=== PATIENT | male | born 1950 | race Caucasian/White ===

== ENCOUNTER 2023-02-05 10:20 | Emergency (ER) | payer MEDICARE, SELFPAY ==
[2023-02-05 10:31] VITALS: BP 143/71; PULSE 73; RESP 17; TEMP 36.9; O2SAT 94; BMI 33.0
--- NOTE | 2023-02-05 10:49 | ED_ITS ---
HPI - URI/Sore Throat General: Chief Complaint: Upper Respiratory Infection Stated Complaint: SOB Time Seen by Provider: 02/05/23 10:45 Source: patient and family () Mode of arrival: ambulatory Limitations: no limitations History of Present Illness: Patient is a 72-year-old male who presents to the ED today along with his for evaluation of chest congestion, productive cough, shortness of breath, nasal congestion/rhinorrhea. states about a week ago she was ill with identical symptoms. She states she was treated with an albuterol inhaler, steroids, antibiotics and she is feeling much improved. Patient states he is coughing up a yellow/green phlegm. He is not having any chest pain. He has not noticed any fevers. Vital signs are stable upon arrival. MD elicited complaint: cough and nasal congestion Onset (ago): day(s) Consistency: constant Severity: moderate Description of mucous: yellow and green Able to tolerate fluids by mouth: Yes Relieving factors: nothing Context: sick contacts () Associated symptoms: Reports nasal congestion; Deny abdominal pain, chills, chest pain, diarrhea, ear or mastoid pain, fever(s ), headache(s), sinus pain or vomiting Treatments prior to arrival: none Review of Systems Const: Denies: fever(s), chills, body aches or fatigue Eyes: Denies: change in vision, blurry vision, photophobia, eye discomfort or eye discharge ENMT: Reports: nasal discharge and nasal congestion; Denies: throat pain, enlarged tonsils, odynophagia, swelling of lips/tongue, oral sores, ear or mastoid pain, ear discharge, post nasal drip or sinus pain Card: Denies: chest pain, palpitations, irregular heart rhythm, edema, swelling of feet/ankles, lightheadedness, syncope, pre-syncope or orthopnea Resp: Reports: dyspnea, productive cough, change in phlegm color and chest congestion; Denies: non-productive cough, wheezing or hemoptysis GI: Denies: abdominal pain, vomiting or diarrhea Musc: Denies: neck pain, back pain, extremity pain, extremity swelling or joint pain Neuro: Denies: headache(s) or dizziness All/Imm: Denies: facial swelling or seasonal rhinorrhea Physical Exam Const: COMMON NORMALS: no acute distress, no limitations, alert and well nourished ORIENTATION/CONSCIOUSNESS: Yes oriented to person, Yes oriented to place and Yes oriented to time HENMT: COMMON NORMALS: normocephalic and atraumatic HEAD & SCALP: normal to inspection, normocephalic and atraumatic FACE & SINUS: normal facial exam and sinuses nontender THROAT: posterior oropharynx normal Neck/C-Spine: COMMON NORMALS: no lymphadenopathy Chest: COMMONS NORMALS: normal inspection of the chest and normal palpation of entire chest wall Resp: COMMON NORMALS: normal respiratory effort and clear to auscultation bilaterally AUSCULTATION: clear to auscultation bilaterally Cardio: COMMON NORMALS: regular rate and regular rhythm RATE: regular rate RHYTHM: regular rhythm Extremity: COMMON NORMALS: normal to inspection and no clubbing, cyanosis or edema GENERAL: Yes normal exam except as noted Neuro: SIDRA COMA SCALE: document GCS findings [place] coma scale eye opening: Spontaneous Sidra coma scale verbal response: Orientated Sidra coma scale motor response: Obey commands [place] coma scale total score: 15 SENSORIUM/ORIENTATION: Yes alert, Yes oriented to person, Yes oriented to place and Yes oriented to time Course Vital Signs: Vital signs: Vital Signs Temperature 98.4 F 02/05/23 10:31 Pulse Rate 73 02/05/23 10:31 Respiratory Rate 17 02/05/23 10:31 Blood Pressure 143/71 02/05/23 10:31 Pulse Oximetry 94 02/05/23 10:31 Oxygen Delivery Me thod Room Air 02/05/23 10:31 MDM - URI/Sore Throat Medical Decision Making Patient appears in no acute distress. He does have a very productive sounding cough present. Vital signs are normal. CXR is normal. Will place on medications and have him follow-up with primary care in a week or so if symptoms do not seem to be improving and certainly if they are worsening. Return ED precautions given. Lab Data Radiology Impressions Chest X-Ray 02/05/23 11:12 Impression: Negative chest. Discharge Plan Discharge Patient Disposition: Home Clinical Impression: Bronchitis Condition: Stable Prescriptions: New albuterol sulfate 90 mcg/actuation HFA aerosol inhaler 2 inh INHALATION Q4H PRN (Reason: shortness of breath or wheezing) Qty: 6.7 0RF Medrol (Rafael) 4 mg tablets,dose pack See Rx Instructions .ROUTE .COMPLEX Qty: 21 0RF Rx Instructions: orally per package directions amoxicillin-pot clavulanate 875-125 mg tablet 1 tab PO BID Qty: 14 0RF Discharge Orders: Discharge ED (Routine); Ordered 02/05/23 Ordered By: Renee Grullon Patient Instructions: Bronchitis (Acute) - Adult, Acute Bronchitis (ED) Coding Level of Care Code ED Fund Development Manager for Cat Meehan
--- NOTE | 2023-02-05 11:12 | XR_ITS ---
WS: [id number] Portable AP upright chest, 02/05/2023 Clinical Data: cough/congestion Comparison: None. Findings: No nodules, masses or effusions are seen. The heart is normal. The pulmonary vascularity is not increased. No pneumonia or pneumothorax is seen. There is an anterior cervical disc fusion. XR/XR chest 1V portable [id number] Impression: Negative chest.
--- NOTE | 2023-02-07 15:02 | DCPLANNER ---
operations manager/coordinator unable to speak with patient at this time, due to no primary care physician.
== END 2023-02-05 12:15 | disposition home or self-care (01) ==
PROVIDERS: Emergency Provider Physician Assistant
DX: J40 Bronchitis, not specified as acute or chronic (principal)
CPT/HCPCS: 71045; 99283